=== PATIENT | male | born 1995 | race Caucasian/White ===

== ENCOUNTER 2018-12-22 10:51 | Inpatient (IN) | payer SELFPAY ==
[~2018-12-22] VITALS: Ht 175.3 cm; Wt 78.2 kg
[2018-12-22 11:05] VITALS: Ht 175.3 cm; Wt 78.2 kg
--- NOTE | 2018-12-22 11:12 | NUR ---
PT PLACED IN ROOM 2B FOR EVAL.
--- NOTE | 2018-12-22 11:12 | NUR ---
PT AMBULATORY WITH STEADY GAIT TO BATHROOM TO PROVIDE URINE SPECIMEN
--- NOTE | 2018-12-22 11:18 | NUR ---
PT C/O SHARP RLQ PAIN SINCE 0800 THIS AM WITH 4 EPISODES OF VOMITING PT AAOX2 RESPS E/U +N -VOMITING AT THIS TIME DENIES ANY OTHER S/S MD BRYANT AT BEDSIDE PERFORMING MSE
--- NOTE | 2018-12-22 11:19 | NUR ---
LAB AT BEDSIDE
[2018-12-22 11:28] LABS: BASOPHIL % 0.3 % (0-2); PLATELET COUNT 235 x10^3mcL (130-400); RED CELL DISTRIBUTION WIDTH 13.5 % (11.5-14.5)
[2018-12-22 11:49] LABS: CALCIUM 9.4 mg/dL (8.5-10.1); CHLORIDE SERUM 103 mmol/L (98-107); CREATININE SERUM 0.9 mg/dL (0.7-1.3); GFR1 > 60 mL/min; GLUCOSE SERUM 112 mg/dL (74-106); POTASSIUM SERUM 3.6 mmol/L (3.5-5.1); SODIUM SERUM 140 mmol/L (136-145)
[2018-12-22 11:53] LABS: ALBUMIN 4.3 g/dL (3.4-5.0); ALKALINE PHOSPHATASE 76 U/L (46-116); ALT/SGPT 45 U/L (16-63); AST/SGOT 25 U/L (15-37); BILIRUBIN TOTAL 1.24 mg/dL (0.20-1.00); LIPASE 90 IU/L (73-393); TOTAL PROTEIN, SERUM 7.7 g/dL (6.4-8.2)
--- NOTE | 2018-12-22 11:57 | NUR ---
PT TAKEN TO US VIA W/C
--- NOTE | 2018-12-22 12:25 | NUR ---
PT C/O 05/08 PAIN PER PT "MORPHINE DIDN'T WORK" MD BRYANT NOTIFIED ADDITIONAL DOSE OF MORPHINE ADMIN PER MD ORDERS SEE EMAR
--- NOTE | 2018-12-22 13:54 | NUR ---
PT IN POSITION OF COMFORT RESPS E/U
--- NOTE | 2018-12-22 14:45 | NUR ---
PT TO CT VIA CARL[facility] GRANDA NOTED.
--- NOTE | 2018-12-22 15:05 | NUR ---
PT BACK FROM CT IN STABLE CONDITION
--- NOTE | 2018-12-22 16:42 | NUR ---
OR TRANSPORTER HERE TO TAKE PT TO OR. FLUID INFUSION TO BE RESUMED BY OR NURSE. IV SITE PATENT. PT IN NO DISTRESS. VSS.
[2018-12-22 16:59] LABS: CHOLESTEROL/HDL RATIO 2.5
--- NOTE | 2018-12-22 18:30 | NUR ---
RECEIVED TELEPHONE REPORT FROM TRICIA OR NURSE. PATIENT IS S/P LAP APPY, ALL QUESTIONS AND CONCERNS ADDRESSED. PATIENT IS EXPECTED TO BE TRANSFERED TO [facility] AROUND 1850.
[2018-12-22 19:30] VITALS: BP 140/77
--- NOTE | 2018-12-22 19:45 | NUR ---
CAME FROM OR AWAKE, ALERT AND ORIENTED VIA GURNEY ACCOMPANIED BY OR STAFFS AND FAMILY MEMBERS. SP APPENDECTOMY WITH SURGICAL INCISION X3 WITH BANAID CDI. DENIES POST OPERATIVE THIS TIME, PATIENT MEDICATED FOR PAIN EARLIER IN OR. KEPT IN COMFORT AND ORIENTED TO ROOM AND DEVICES. WITH ADMISSION ORDERS AND TO CARRY OUT. HEPLOCK TO LAC G.20. WILL CONTINUE TO MONITOR.
--- NOTE | 2018-12-23 01:19 | NUR ---
ASSISTED TO BATHROOM AND VOIDED. DENIES POST OPERATIVE PAIN AT THIS TIME. WILL CONTINUE TO MONITOR.
--- NOTE | 2018-12-23 05:07 | NUR ---
SLEPT FAIRLY, DENIES POST OPERATIVE PAIN THE ENTIRE SHIFT. ALL NEEDS ATTENDED.
[2018-12-23 05:53] VITALS: BP 106/55
[2018-12-23 06:27] LABS: PLATELET COUNT 192 x10^3mcL (130-400); RED CELL DISTRIBUTION WIDTH 13.2 % (11.5-14.5)
[2018-12-23 06:33] LABS: BASOPHIL % 0 % (0-2)
[2018-12-23 06:43] LABS: CALCIUM 8.6 mg/dL (8.5-10.1); CARBON DIOXIDE 26.6 mmol/L (21-32); CHLORIDE SERUM 104 mmol/L (98-107); GFR1 > 60 mL/min; GLUCOSE SERUM 105 mg/dL (74-106); POTASSIUM SERUM 4.6 mmol/L (3.5-5.1); SODIUM SERUM 141 mmol/L (136-145)
--- NOTE | 2018-12-23 07:10 | NUR ---
RECEIVED PT FROM FOXER RN. Shell/SYLVESTER. MED SURG. DENIES CHEST PAIN/PRESSURE. RESPIRATIONS EQUAL AND UNLABORED ON RA. DENIES SOB. PT STATES HE HAS BEEN PASSING GAS. INCISIONS X3 TO LLQ ABDOMEN CDI. PT STATES HE HAS A LITTLE PAIN, BUT IS TOLERABLE. IV TO LAC PATENT AND INFUSING. NO REDNESS OR SWELLING NOTED. WILL CONTINUE TO MONITOR. CALL LIGHT IN REACH. BED IN LOWEST POSITION.
[2018-12-23 09:00] VITALS: BP 118/62
--- NOTE | 2018-12-23 09:26 | NUR ---
PT IN BED RESTING. RESPIRATIONS EQUAL AND UNLABORED ON RA. DENIES SOB. PT C/O PAIN 5/10 TO OPERATIVE SITE. PAIN INCREASING WHEN MOVING. GIVEN NORCO PO. TOLERATED WELL. IV FLUIDS INFUSING ORDERED. NO REDNESS OR SWELLING NOTED. PT SITTING UP AT BEDSIDE. WILL CONTINUE TO MONITOR. CALL LIGHT IN REACH. BED IN LOWEST POSITION.
--- NOTE | 2018-12-23 09:43 | NUR ---
PT AMBULATING HALLWAYS.
--- NOTE | 2018-12-23 10:12 | NUR ---
PT STANDING UP AT BEDSIDE. PT STATES PAIN HAS IMPROVED SINCE RECEIVING NORCO. CALLED [employer]ITCH[employer] AND GOT BREAKFAST TRY. CHANGED IV FLUID RATE TO 20ML/HR ORDERED. WILL CONTINUE TO MONITOR. CALL LIGHT IN REACH.
[2018-12-23 12:37] VITALS: BP 118/62
--- NOTE | 2018-12-23 14:17 | NUR ---
PT SITTING UP IN BED. GIVEN DISCHARGE INSTRUCTIONS TRANSLATED BY NIKIA RAND. PT INSTRUCTED TO CONTINUE REGULAR DIET TOLERATED. TO DO LIGHT ACTIVITY UNTIL FOLLOW UP APPT WITH DR. BRYAN. PT GIVEN CONTACT INFORMATION FOR DR. BRYAN AND ENCOURAGED TO CALL TO MAKE A FOLLOW UP APPOINTMENT. PT STATES HE WILL CALL TODAY. PT ENCOURAGED TO COME INTO ER IF ANY WORSENING SYMPTOMS SUCH FEVER, SOB, DRAINAGE OR BLEEDING FROM INCISION SITES. PHOTOGRAPH TAKEN OF INCISION IN CHART. PT PROVIDED EDUCATION REGARDING APPENDICITIS. PT GIVEN PRESCRIPTIONS FOR NORCO. PT VERBALIZED UNDERSTANDING. ALL QUESTIONS AND CONCERNS ADDRESSED. IV TO LAC REMOVED CATHETER INTACT. NO REDNESS OR SWELLING NOTED. PT TAKEN DOWN VIA WHEELCHAIR BY NIKIA RAND.
== END 2018-12-23 14:25 | disposition home or self-care (01) | DRG 342 ==
LOC: ED 10:51 → MU 15:36
PROVIDERS: Emergency Medicine; Surgery; ADMIT Internal Medicine
PROC: 0DTJ4ZZ Resection of Appendix, Percutaneous Endoscopic Approach (ICD-10-PCS; principal; 2018-12-22 17:00)
DX: K35.80 Unspecified acute appendicitis (principal); K56.7 Ileus, unspecified; E78.5 Hyperlipidemia, unspecified
CPT/HCPCS: J0690; J0696; J1170; J2250; J2270; J2405; J3010; J3490; J7030; Q9967